=== PATIENT | male | born 1940 | race Two or more races ===

== ENCOUNTER → 2016-12-17 | Outpatient (CLI) | payer MEDICARE, OTHER ==
[~2016-12-17] MED LIST: AMITIZA24 MC1 PO; ASPIR 8181 MG PO; ATENOLOL25 MG PO; DIOVAN160 MG PO; FENOFIBRATE145 M1 PO; GABAPENTIN300 M2 PO; GLUCOTROL10 MG PO; ISO10 PO; ISORDIL TITRADO40 MG; JANUMET1 TAB PO; MYRBETRIQ25 MG PO; PATANOL5 ML OU; PLA75 PO; POLYETHYLENE GL1 PO1 PO; TENORMIN50 MG PO
== END | disposition home or self-care (01) ==
LOC: RD 16:31
DX: R09.89 Other specified symptoms and signs involving the circulatory and respiratory systems (principal)

== ENCOUNTER → 2017-02-25 | Outpatient (CLI) | payer MEDICARE, OTHER | END | disposition home or self-care (01) | LOC: RD 11:36 | DX: M19.042 Primary osteoarthritis, left hand (principal) ==

== ENCOUNTER 2017-11-02 13:30 | Inpatient (IN) | payer OTHER, MEDICARE ==
[~2017-11-02] VITALS: Ht 170.2 cm; Wt 92.6 kg
[2017-11-02 13:47] VITALS: Ht 170.2 cm; Wt 92.6 kg
[2017-11-02 14:36] LABS: BASOPHIL % 0.7 % (0-2); RED CELL DISTRIBUTION WIDTH 14.1 % (11.5-14.5)
[2017-11-02 14:37] LABS: PLATELET COUNT 123 x10^3mcL (130-400)
[2017-11-02 14:47] LABS: CARBON DIOXIDE 24.6 mmol/L (21-32); CHLORIDE SERUM 100 mmol/L (98-107); CREATININE SERUM 0.8 mg/dL (0.7-1.3); GLUCOSE SERUM 281 mg/dL (74-106); SODIUM SERUM 135 mmol/L (136-145)
[2017-11-02 14:52] LABS: ALKALINE PHOSPHATASE 53 U/L (46-116); ALT/SGPT 55 U/L (16-63); AST/SGOT 46 U/L (15-37); BILIRUBIN TOTAL 1.04 mg/dL (0.20-1.00); TOTAL PROTEIN, SERUM 6.7 g/dL (6.4-8.2)
[2017-11-02 14:56] LABS: ALBUMIN 3.3 g/dL (3.4-5.0)
[2017-11-02] MEDS ORDERED: CARVEDILOL3.125 M1 PO (15:11)
[2017-11-02] MEDS ORDERED: GABAPENTIN400 M1 PO (15:11)
[2017-11-02] MEDS ORDERED: ASPIR 8181 MG PO (15:11)
[2017-11-02] MEDS ORDERED: CLOPIDOGREL75 M1 PO (15:12)
[2017-11-02] MEDS ORDERED: LIPI20 PO (15:13)
[2017-11-02] MEDS ORDERED: FLOVENT DI50 MCG/Ac1 IH (15:14)
[2017-11-02 15:45] LABS: microscopic required? NO
[2017-11-02 15:51] LABS: urine erythrocyte NEGATIVE (NEGATIVE)
[2017-11-02 16:08] LABS: AMYLASE 28 U/L (25-115); HDL CHOLESTEROL 42 mg/dL (40-60); LIPASE 156 IU/L (73-393); MAGNESIUM 1.8 mg/dL (1.8-2.4); PHOSPHOROUS 2.7 mg/dL (2.5-4.9)
[2017-11-02 16:09] LABS: CHOLESTEROL 111 mg/dL (<200); CHOLESTEROL/HDL RATIO 2.6; TRIGLYCERIDES 413 mg/dL (<150)
[2017-11-02 16:16] LABS: FREE T4 0.89 ng/dL (0.76-1.46); FREE THYROXINE INDEX 1.6 ug/dL (1.4-4.5); T4(THYROXINE) 4.7 ug/dL (4.7-13.3)
[2017-11-02 16:17] LABS: T3 TOTAL 0.9 ng/mL
[2017-11-02] MEDS ORDERED: GLIMEPIRIDE2 M1 PO (16:46)
[2017-11-02 19:41] VITALS: BP 140/74
[2017-11-03 00:18] VITALS: BP 141/74
[2017-11-03 05:21] VITALS: BP 145/70
[2017-11-03 09:05] VITALS: BP 147/70
[2017-11-03 13:19] VITALS: BP 155/78
[2017-11-03 16:25] VITALS: BP 160/83
[2017-11-03 17:27] VITALS: BP 160/83
[2017-11-03] MEDS ORDERED: HEP5I IV (17:37)
[2017-11-03] MEDS ORDERED: HEP100I IV (17:38)
[2017-11-03] MEDS ORDERED: HEP25PM IV (17:39)
[2017-11-03] MEDS ORDERED: NIT0.4 SL (17:40)
[2017-11-03] MEDS ORDERED: APAP/HYDROCODON1 T13 PO (17:41)
[2017-11-03] MEDS ORDERED: BG FS (17:42)
[2017-11-03] MEDS ORDERED: TYL325 PO (17:42)
[2017-11-03] MEDS ORDERED: DEXPF IV (17:43)
[2017-11-03] MEDS ORDERED: DUL10S RC (17:44)
[2017-11-03] MEDS ORDERED: COL100 PO (17:44)
[2017-11-03] MEDS ORDERED: ONDANSETRON4 M3 PO (17:45)
[2017-11-03] MEDS ORDERED: HUMULIN R100 U/1 M1 SC (17:45)
== END 2017-11-03 19:50 | disposition short-term general hospital (02) | DRG 190 ==
LOC: ED 13:30 → DU 15:13
PROVIDERS: Emergency Medicine; Family Medicine
DX: I21.4 Non-ST elevation (NSTEMI) myocardial infarction (principal); E11.65 Type 2 diabetes mellitus with hyperglycemia; I10 Essential (primary) hypertension; E78.5 Hyperlipidemia, unspecified; E78.00 Pure hypercholesterolemia, unspecified; E44.1 Mild protein-calorie malnutrition; E66.9 Obesity, unspecified; K59.09 Other constipation; Z98.61 Coronary angioplasty status; Z90.49 Acquired absence of other specified parts of digestive tract; Z79.899 Other long term (current) drug therapy; Z79.84 Long term (current) use of oral hypoglycemic drugs; Z83.3 Family history of diabetes mellitus; Z82.3 Family history of stroke; Z82.49 Family history of ischemic heart disease and other diseases of the circulatory system; Z68.32 Body mass index [BMI] 32.0-32.9, adult
CPT/HCPCS: 82962; 83880; 84439; J1644; J1885; J7030; J7042; Q0092; Q9967

== ENCOUNTER → 2018-07-25 | Outpatient (CLI) | payer MEDICARE, OTHER ==
[~2018-07-25] MED LIST changes: +APAP/HYDROCODON1 T13 PO; +BG FS; +CARVEDILOL3.125 M1 PO; +CLOPIDOGREL75 M1 PO; +COL100 PO; +DEXPF IV; +DUL10S RC; +FLOVENT DI50 MCG/Ac1 IH; +GABAPENTIN400 M1 PO; +GLIMEPIRIDE2 M1 PO; +HEP100I IV; +HEP25PM IV; +HEP5I IV; +HUMULIN R100 U/1 M1 SC; +LIPI20 PO; +NIT0.4 SL; +ONDANSETRON4 M3 PO; +TYL325 PO
== END | disposition home or self-care (01) ==
LOC: RD 11:25
DX: M79.671 Pain in right foot (principal)

== ENCOUNTER → 2019-03-24 | Outpatient (CLI) | payer MEDICARE, OTHER | END | disposition home or self-care (01) | LOC: RD 10:07 | DX: M25.562 Pain in left knee (principal) ==

== ENCOUNTER → 2020-04-11 | Outpatient (CLI) | payer MEDICARE, OTHER | END | disposition home or self-care (01) | LOC: US 09:00 | PROC: B34KZZZ Ultrasonography of Bilateral Upper Extremity Arteries (ICD-10-PCS; principal; 2020-04-11) | PROC: B44HZZZ Ultrasonography of Bilateral Lower Extremity Arteries (ICD-10-PCS; 2020-04-11) | DX: E11.9 Type 2 diabetes mellitus without complications (principal); Z98.61 Coronary angioplasty status ==